=== PATIENT | female | born 2000 | race Caucasian/White ===

== ENCOUNTER 2022-12-08 19:09 | Observation (INO) | payer MEDICAID ==
[2022-12-08] MEDS ORDERED: Acetaminophen 500 MG Tab PO STA (20:07)
[2022-12-08 21:43] LABS: CANDIDA DNA PROBE NEGATIVE (NEGATIVE); GARDNERELLA DNA PROBE POSITIVE (NEGATIVE); TRICHOMONAS DNA PROBE NEGATIVE (NEGATIVE)
== END 2022-12-08 22:00 | disposition home or self-care (01) ==
LOC: MW.OB 19:09 → MW.OBCHECK 19:09 → MW.OB 20:07
PROVIDERS: ADMIT Obstetrics & Gynecology Obstetrics; ATTEND Obstetrics & Gynecology
DX: O99.891 Other specified diseases and conditions complicating pregnancy (principal); R10.9 Unspecified abdominal pain
CPT/HCPCS: 87480; 87510; 87660; A9270; G0378

== ENCOUNTER 2024-01-09 10:13 | Emergency (ER) | payer MEDICAID | END 2024-01-09 11:36 | disposition home or self-care (01) | LOC: MW.ED 10:13 | DX: L03.213 Periorbital cellulitis (principal); Z79.899 Other long term (current) drug therapy; Z75.8 Other problems related to medical facilities and other health care | CPT/HCPCS: 99282 ==